=== PATIENT | female | born 1955 | race Caucasian/White ===

== ENCOUNTER 2017-08-09 13:37 | Inpatient (IN) | payer MEDICARE, OTHER ==
[~2017-08-09] VITALS: Ht 162.6 cm; Wt 63.0 kg
--- NOTE | 2017-08-09 13:40 | NUR ---
Pt is waiting in the hallway with EMS, there are no ER beds available at this time.
--- NOTE | 2017-08-09 14:07 | NUR ---
Pt triaged and placed in hallway in [facility]. There are no ER beds available at this time. Nursing metalizing supervisor called for 1:1 sitter.
[2017-08-09 14:58] LABS: BASOPHILS # (AUTO) 0.1 K/uL (0.0-8.0); BASOPHILS % (AUTO) 0.6 % (0.0-2.0); EOSINOPHILS # (AUTO) 0.1 K/uL (0.0-0.7); EOSINOPHILS % (AUTO) 0.9 % (0.0-7.0); HEMOGLOBIN 15.2 g/dL (10.9-14.3); LYMPHOCYTES # (AUTO) 3.5 K/uL (20.0-40.0); LYMPHOCYTES % (AUTO) 41.3 % (20.5-51.5); MEAN CORPUSCULAR HEMOGLOBIN 34.5 uug (24.7-32.8); MEAN CORPUSCULAR HGB CONC 35 g/dL (32.3-35.6); MEAN CORPUSCULAR VOLUME 99.9 fL (75.5-95.3); MONOCYTES # (AUTO) 0.6 K/uL (2.0-10.0); MONOCYTES % (AUTO) 7.3 % (0.0-11.0); NEUTROPHILS # (AUTO) 4.2 K/uL (1.8-8.9); NEUTROPHILS % (AUTO) 49.9 % (38.5-71.5); PLATELET COUNT (AUTO) 248 K/uL (179-408); RED BLOOD CELL COUNT(AUTO) 4.41 MIL/uL (3.63-4.92); WHITE BLOOD COUNT (AUTO) 8.4 K/uL (3.8-11.8)
[2017-08-09 15:09] LABS: CARBON DIOXIDE 26 mmol/L (21-32); CHLORIDE 98 mmol/L (98-107); CREATININE 0.8 mg/dL (0.6-1.3); GLUCOSE 105 mg/dL (74-106); POTASSIUM 3.2 mmol/L (3.5-5.1); UREA NITROGEN, BLOOD 8 mg/dL (7-18)
[2017-08-09 15:13] LABS: ALANINE AMINOTRANSFERASE 45 U/L (14-59); ALKALINE PHOSPHATASE 100 U/L (50-136); ASPARTATE AMINOTRANSFERASE 48 U/L (15-37); BILIRUBIN,DIRECT 0.1 mg/dL (0.0-0.2); BILIRUBIN,TOTAL 0.4 mg/dL (0.2-1.0); TOTAL PROTEIN, SERUM 8.1 g/dL (6.4-8.2)
[2017-08-09 15:20] LABS: ACETAMINOPHEN < 2.0 ug/mL (10-30)
--- NOTE | 2017-08-09 15:24 | NUR ---
labs drawn/urine sent/ekg done. pt presently eating lunch, sitter at bedside. pt cooperative.
[2017-08-09 15:30] LABS: *AMPHETAMINE, URINE NEGATIVE (NEGATIVE); *BARBITURATE, URINE NEGATIVE (NEGATIVE); *CANNABINOID, URINE NEGATIVE (NEGATIVE); *COCCAINE, URINE NEGATIVE (NEGATIVE); *OPIATE, URINE NEGATIVE (NEGATIVE); *PHENCYCLIDINE SCREEN,URINE NEGATIVE (NEGATIVE)
[2017-08-09 15:34] LABS: ETHANOL 93 MG/DL (0-0)
[2017-08-09 15:35] LABS: *BILIRUBIN,URIN NEGATIVE (NEGATIVE); *BLOOD, URINE NEGATIVE (NEGATIVE); *CLARITY,URINE CLEAR (CLEAR); *COLOR,URINE YELLOW (YELLOW); *KETONES,URINE NEGATIVE (NEGATIVE); *PROTEIN,URINE NEGATIVE (NEGATIVE); *UROBILINOGEN,URINE 0.2 E.U./dl (NORMAL); LEUKOCYTE ESTERASE ,URINE NEGATIVE (NEGATIVE); NITRITE, URINE NEGATIVE (NEGATIVE); UGLUCOSE NEGATIVE (NEGATIVE)
[2017-08-09 15:41] LABS: THYROID STIMULATING HORMONE 1.273 mIU/mL (0.358-3.740)
[2017-08-09 16:04] LABS: SQUAMOUS EPITHELIAL CELL,UR FEW /HPF (NONE SEEN); WBC,URINE 0-3 /HPF (0-3)
--- NOTE | 2017-08-09 18:16 | NUR ---
pt has been medically cleared, pet customizer at bedside,sitter at bedside.
--- NOTE | 2017-08-09 18:44 | NUR ---
sbar report to jose luis alonso.
--- NOTE | 2017-08-09 19:46 | NUR ---
Pt. admitted to [facility], under care of Dr. Marlow Belongs List completed
[2017-08-09] MEDS ORDERED: LORAZEPAM 1 MG TABLET PO PRN (20:00)
[2017-08-09] MEDS ORDERED: MAGNESIUM HYDROXIDE 30 ML LIQUID UDC PO PRN (20:00)
[2017-08-09] MEDS ORDERED: MAG HYDROX/AL HYDROX/SIMETH 30 ML LIQUID UDC PO PRN (20:00)
[2017-08-09] MEDS: CARBAMAZEPINE 200 MG TABLET PO SCH (21:45)
[2017-08-09] MEDS: TRAZODONE 50 MG TABLET PO SCH (21:49)
[2017-08-09] MEDS ORDERED: TRAZODONE 50 MG TABLET ONE (22:04)
[2017-08-09] MEDS ORDERED: AMLO10TA2 PO (22:55)
[2017-08-09] MEDS ORDERED: PROP80CA PO (22:55)
[2017-08-09] MEDS ORDERED: ATOR10TA PO (22:55)
[2017-08-09 23:41] VITALS: BP 150/95
[2017-08-10 07:30] VITALS: BP 129/82
[2017-08-10] MEDS: CARBAMAZEPINE 200 MG TABLET PO SCH ×3 (08:42→16:58)
[2017-08-10] MEDS: ACETAMINOPHEN 325 MG TABLET PO PRN ×2 (08:48→16:00)
[2017-08-10 15:18] VITALS: BP 142/96
[2017-08-10] MEDS ORDERED: POTASSIUM CHLORIDE 20 MEQ TAB.PRT.SR PO ONE (15:30)
--- NOTE | 2017-08-10 16:20 | NUR ---
Gps/Jewel Hole Finish Opener- Stayed in bed most of the day, came out to asked for simple needs and goes right back to bed. Encouraged staying up in the activity room during meals. Denies any suicidal ideations at this time, monitor needs and safety.
[2017-08-10] MEDS: TRAZODONE 50 MG TABLET PO SCH (20:29)
[2017-08-10] MEDS: ATORVASTATIN 10 MG TABLET PO SCH (20:29)
[2017-08-10] MEDS: PROPRANOLOL HCL 10 MG TABLET PO SCH (20:30)
[2017-08-10] MEDS ORDERED: PROPRANOLOL HCL 10 MG TABLET ONE (20:42)
[2017-08-10 20:46] VITALS: BP 156/99
[2017-08-11 07:30] VITALS: BP 121/73
[2017-08-11] MEDS: CARBAMAZEPINE 200 MG TABLET PO SCH ×3 (08:24→16:29)
[2017-08-11] MEDS: AMLODIPINE 10 MG TABLET PO SCH (08:25)
[2017-08-11] MEDS: PROPRANOLOL HCL 10 MG TABLET PO SCH ×2 (08:25→20:04)
[2017-08-11] MEDS ORDERED: PROPRANOLOL LA 80 MG CAP.SA.24H PO SCH (09:00)
[2017-08-11] MEDS ORDERED: PROPRANOLOL HCL 10 MG TABLET PO SCH (09:00)
[2017-08-11] MEDS: ACETAMINOPHEN 325 MG TABLET PO PRN (09:27)
[2017-08-11 15:18] VITALS: BP 109/73
[2017-08-11] MEDS: GUAIFENESIN/DEXTROMETHORPHAN 5 ML UDC PO PRN ×2 (16:29→21:07)
[2017-08-11] MEDS: TRAZODONE 50 MG TABLET PO SCH (20:04)
[2017-08-11] MEDS: ATORVASTATIN 10 MG TABLET PO SCH (20:04)
[2017-08-11 20:11] VITALS: BP 168/96
--- NOTE | 2017-08-11 21:33 | NUR ---
PATIENT RECEIVED IN ACTIVITIES ROOM WATCHING T.V. INTERACTING WITH PEERS AND STAFF. PATIENT DENIES SI " I WANT TO LIVE, I LOVE LIFE." PATIENT STATED HAVING A "WONDERFUL DAY." PATIENT DENIES PAIN AT THIS TIME, WILL CONTINUE TO MONITOR. PATIENT COMPLAINT WITH MEDICATION. BED IN LOWEST POSITION, BED LOCKED, AND BED ALARM ON WHILE IN BED.
[2017-08-11] MEDS: TEMAZEPAM 7.5 MG CAPSULE PO PRN (23:24)
[2017-08-12] MEDS: ACETAMINOPHEN 325 MG TABLET PO PRN ×3 (04:35→23:23)
[2017-08-12 07:30] VITALS: BP 158/98
[2017-08-12] MEDS: PROPRANOLOL HCL 10 MG TABLET PO SCH ×2 (09:16→20:11)
[2017-08-12] MEDS: CARBAMAZEPINE 200 MG TABLET PO SCH ×4 (09:16→20:10)
[2017-08-12] MEDS: AMLODIPINE 10 MG TABLET PO SCH (09:16)
[2017-08-12] MEDS: GUAIFENESIN/DEXTROMETHORPHAN 5 ML UDC PO PRN ×2 (10:25→17:45)
--- NOTE | 2017-08-12 15:53 | NUR ---
Initial Discharge Note: Patient currently resides in [address] [place] [id number]; No phone number listed. Patient states that she want to go back to her apartment upon discharge. SW will follow up with MD and patient. SW will form a safe and proper discharge. Patient will be given outpatient referrals for alcohol abuse and smoking cessation.
[2017-08-12 16:48] VITALS: BP 153/100
[2017-08-12] MEDS: ATORVASTATIN 10 MG TABLET PO SCH (20:10)
[2017-08-12] MEDS: TRAZODONE 50 MG TABLET PO SCH (20:10)
[2017-08-12 20:50] VITALS: BP 158/99
[2017-08-12] MEDS: TEMAZEPAM 7.5 MG CAPSULE PO PRN (23:23)
[2017-08-13] MEDS: ACETAMINOPHEN 325 MG TABLET PO PRN (05:35)
--- NOTE | 2017-08-13 06:56 | NUR ---
C/O HEADACHE-TYLENOL WAS GIVEN X2 THIS SHIFT.PT SLEPT FOR 8 HRS.
[2017-08-13 07:30] VITALS: BP_SYST 102; BP_SYST 139; BP_DIAS 75; BP_DIAS 87
[2017-08-13 08:18] VITALS: BP 139/87
[2017-08-13] MEDS: AMLODIPINE 10 MG TABLET PO SCH (08:18)
[2017-08-13] MEDS: PROPRANOLOL HCL 10 MG TABLET PO SCH (08:18)
[2017-08-13] MEDS: CARBAMAZEPINE 200 MG TABLET PO SCH (08:18)
--- NOTE | 2017-08-13 11:24 | NUR ---
Discharge Note:Patient will be discharged to her home [address], [place] [address]; [phone] via taxi. Patient has no family and friends to pick her up or to discuss the discharge plans. Patient is agreeable and aware with the discharge plans. Patient will follow up with her Primary care Physician Dr. Adele Grewal [address] [place] [address]; and is [place] [facility] one of the rotating psychiatrists [address], [place] [address]; . Patient has a screening appointment at [facility] [address], [place] [address]; at 9:00 am on 08/14/17. In addition, she was referred to [facility] , and [facility] . For smoking cessation, patient was referred to [facility] at [address] [address] on August 18, 2017 at 5:30pm in room 8. Additional resources given were [employer] 800-LUNGUSA and [employer] [phone]. Patient was provided with additional outpatient mental health resources to [facility] , Karina Marroquin , and the National Suicide Prevention Lifeline .
--- NOTE | 2017-08-13 12:00 | NUR ---
PT IS BEING DISCHARGED HOME VIA TAXI. PT IS ALERT AND ORIENTED X 4. PT IS PLEASANT AND IN A GOOD MOOD. PT DENIES S.I. STATES SHE HAS A LOT TO LIVE FOR. PT IS ABLE TO STATE TRIGGERS FOR HER DEPRESSION, MOSTLY SOCIAL ISOLATION. PT STATES THAT SHE PLANS TO JOIN ACTIVITIES AT THE CENTER WHERE SHE RESIDES. NO BEHAVIORAL ISSUES. NO DISTRESS NOTED. ALL BELONGINGS RETURNED.
== END 2017-08-13 12:00 | disposition home or self-care (01) | DRG 885 ==
LOC: ER 13:39 → GPS 19:31
PROVIDERS: ADMIT Psychiatry & Neurology Psychiatry; ATTEND Nurse Practitioner Acute Care
DX: F31.30 Bipolar disorder, current episode depressed, mild or moderate severity, unspecified (principal); D75.1 Secondary polycythemia; E78.1 Pure hyperglyceridemia; I10 Essential (primary) hypertension; Z60.2 Problems related to living alone; M06.9 Rheumatoid arthritis, unspecified; E87.6 Hypokalemia
CPT/HCPCS: 36415; 70030-TC; 71045; 80307; 84443; 85025; 93005; A4663; G0480; G0480-TC